=== PATIENT | male | born 1995 | race Hispanic/Latino ===

== ENCOUNTER 2019-07-27 14:37 | Emergency (ER) | payer BC ==
[2019-07-27 14:46] VITALS: BP 128/55
--- NOTE | 2019-07-27 15:38 | Emergency Department Report ---
ED Lower Extremity HPI - General Chief Complaint: Extremity Injury, Lower Stated Complaint: SKATEBOARDING ACCIDENT Time Seen by Provider: 07/27/19 15:36 Source: patient Mode of arrival: Ambulatory Limitations: No Limitations - History of Present Illness Initial Comments: Patient is a 24-year-old male who comes to the ER after falling off his skateboard, complaining of right lateral foot pain posterior towards the heel. Patient is ambulatory and in no acute distress on arrival to [facility] MD Complaint: foot injury -: Sudden Place: home Improves With: nothing Worsens With: movement Context: fall - Related Data Allergies Allergy/AdvReac Type Severity Reaction Status Date / Time Penicillins Allergy Rash Verified 07/27/19 14:46 ED Review of Systems ROS: Stated complaint: SKATEBOARDING ACCIDENT Other details as noted in HPI Comment: All other systems reviewed and negative ED Past Medical Hx - Past Medical History Previous Medical History?: No - Surgical History Past Surgical History?: No - Family History Family history: no significant - Social History Smoking Status: Former Smoker Substance Use Type: Alcohol ED Physical Exam - General Limitations: No Limitations General appearance: alert, in no apparent distress - Head Head exam: Present: atraumatic, normocephalic - Eye Eye exam: Present: normal appearance - ENT ENT exam: Present: mucous membranes moist - Neck Neck exam: Present: normal inspection - Respiratory Respiratory exam: Present: normal lung sounds bilaterally. Absent: respiratory distress - Cardiovascular Cardiovascular Exam: Present: regular rate, normal rhythm. Absent: systolic murmur, diastolic murmur, rubs, gallop - GI/Abdominal GI/Abdominal exam: Present: soft, normal bowel sounds - Rectal Rectal exam: Present: deferred - Extremities Exam Extremities exam: Present: normal inspection - Back Exam Back exam: Present: normal inspection - Neurological Exam Neurological exam: Present: alert, oriented X3 - Psychiatric Psychiatric exam: Present: normal affect, normal mood - Skin Skin exam: Present: warm, dry, intact, normal color. Absent: rash ED Course Vital Signs 07/27/19 14:43 Temperature 97.6 F Pulse Rate 90 Respiratory 16 Rate Blood Pressure 128/55 O2 Sat by Pulse 98 Oximetry ED Lower Extremity MDM - Radiology Data Radiology results: image reviewed Negative - Medical Decision Making X-ray negative for fracture. Patient neurovascularly intact. Patient being discharged to home with rice therapy Vital Signs 05/20/20 14:43 Temperature 97.6 F Pulse Rate 90 Respiratory 16 Rate Blood Pressure 128/55 O2 Sat by Pulse 98 Oximetry - Differential Diagnosis Rule out fracture Critical care attestation.: If time is entered above; I have spent that time in minutes in the direct care of this critically ill patient, excluding procedure time. ED Disposition Clinical Impression: Foot contusion, Fall Disposition: DC- TO HOME OR SELFCARE Is pt being admited?: No Does the pt Need Aspirin: No Condition: Stable Instructions: Contusion in Adults (ED) Additional Instructions: rest ice elevate motrin or tylenol for pain follow up with pcp or ortho MD should pain persist referrals below Referrals: SANDIP COPELAND MD [Staff Physician] - 3-5 Days KAREN BOWMAN MD [Staff Physician] - 3-5 Days Time of Disposition: 15:37
== END 2019-07-27 16:09 | disposition home or self-care (01) ==
LOC: ED 14:37
DX: S90.31XA Contusion of right foot, initial encounter (principal); Z88.0 Allergy status to penicillin; Z79.899 Other long term (current) drug therapy; Z87.891 Personal history of nicotine dependence; W17.89XA Other fall from one level to another, initial encounter; Y93.51 Activity, roller skating (inline) and skateboarding; Y92.89 Other specified places as the place of occurrence of the external cause; Y99.8 Other external cause status
CPT/HCPCS: 99283